=== PATIENT | male | born 1965 | race Caucasian/White ===

== ENCOUNTER 2016-08-31 13:44 | Outpatient (RCR) | payer BC | END 2016-11-11 09:11 | disposition home or self-care (01) | LOC: OT 13:44 | DX: Z47.89 Encounter for other orthopedic aftercare (principal); Z87.820 Personal history of traumatic brain injury ==

== ENCOUNTER 2016-10-06 15:30 | Outpatient (RCR) | payer BC | END 2016-11-06 | disposition home or self-care (01) | LOC: PT | DX: M25.511 Pain in right shoulder (principal) ==

== ENCOUNTER 2016-11-07 14:15 | Outpatient (RCR) | payer BC | END 2016-12-28 10:24 | disposition home or self-care (01) | LOC: PT 14:15 | DX: S06.9X0D Unspecified intracranial injury without loss of consciousness, subsequent encounter (principal) ==